=== PATIENT | female | born 1985 | race Caucasian/White ===

== ENCOUNTER → 2019-11-29 12:42 | Outpatient (BNVA) | payer MEDICAID, SELFPAY | PROVIDERS: Visit Provider Nurse Practitioner Women's Health | DX: Z34.81 Encounter for supervision of other normal pregnancy, first trimester (principal); Z87.898 Personal history of other specified conditions | CPT/HCPCS: 84315 ==

== ENCOUNTER → 2019-12-06 13:07 | Outpatient (BNVA) | payer MEDICAID, SELFPAY | PROVIDERS: Visit Provider Obstetrics & Gynecology | DX: Z34.81 Encounter for supervision of other normal pregnancy, first trimester | CPT/HCPCS: 80307; 84315; 85027; 86592; 86762; 86803; 86850; 86900; 87086; 87340 ==

== ENCOUNTER → 2019-12-21 10:53 | Outpatient (BNVA) | payer MEDICAID, SELFPAY | PROVIDERS: Visit Provider Obstetrics & Gynecology | DX: Z34.81 Encounter for supervision of other normal pregnancy, first trimester (principal) | CPT/HCPCS: 84315; 87491; 87591 ==

== ENCOUNTER → 2020-01-18 08:04 | Outpatient (BNVA) | payer MEDICAID, SELFPAY | PROVIDERS: Visit Provider Obstetrics & Gynecology | DX: Z01.89 Encounter for other specified special examinations (principal) | CPT/HCPCS: 84315 ==

== ENCOUNTER → 2020-02-12 09:05 | Outpatient (BNVA) | payer MEDICAID, SELFPAY | PROVIDERS: Visit Provider Obstetrics & Gynecology | DX: Z36.89 Encounter for other specified antenatal screening (principal); Z3A.20 20 weeks gestation of pregnancy | CPT/HCPCS: 76805 ==

== ENCOUNTER → 2020-02-20 12:48 | Outpatient (BNVA) | payer MEDICAID, SELFPAY | PROVIDERS: Visit Provider Obstetrics & Gynecology Female Pelvic Medicine and Reconstructive Surgery | DX: Z46.89 Encounter for fitting and adjustment of other specified devices (principal) | CPT/HCPCS: 84315 ==

== ENCOUNTER → 2020-03-10 15:08 | Outpatient (BNVA) | payer MEDICAID, SELFPAY | PROVIDERS: Visit Provider Obstetrics & Gynecology | DX: Z34.82 Encounter for supervision of other normal pregnancy, second trimester (principal) | CPT/HCPCS: 84315 ==

== ENCOUNTER → 2020-04-10 13:04 | Outpatient (BNVA) | payer MEDICAID, SELFPAY | PROVIDERS: Visit Provider Obstetrics & Gynecology | DX: Z34.82 Encounter for supervision of other normal pregnancy, second trimester (principal) | CPT/HCPCS: 82950; 84315; 85027 ==

== ENCOUNTER 2020-05-16 06:50 | Outpatient (CLI) | payer MEDICAID, SELFPAY ==
[2020-05-16] VITALS (8 sets, daily range): BP systolic 0–102; BP diastolic 0–62; PULSE 86–96; RESP 17; TEMP 36.9; BMI 27.9
--- NOTE | 2020-05-16 07:42 | US_ITS ---
WS: [id number] BIOPHYSICAL PROFILE HISTORY: decreased movement COMPARISON: 02/12/2020 Cardiac activity: 144 bpm. Cervix: closed. Placenta: Fundal, no previa or abruption. Placenta grade: 1 Parameters are as follows: Breathin Movement: 2 Tone: 2 Fluid volume: 2 Largest vertical pocket of amniotic fluid 5.4 cm. 1. Biophysical profile score: 8/8. 2. Normal amniotic fluid. US/US OB BPP wo NST 22791 IMPRESSION:
--- NOTE | 2020-05-16 09:42 | PC.NURSE ---
0849 This nurse entered room and could smell very strong odor of cigarette smoke. When the pt's s/o was asked if he had been smoking in the room, He stated that he had not, but instead he had taken out a partially spent cigarette and was sniffing it because he didn't have any chewing tobacco with him. This nurse re-educated on hospital policy regarding oxygen safety and the hazards of smoking inside the hospital. Education was given to prevent future concerns regarding leaving all smoking paraphernalia in their vehicle at future visits.
== END 2020-05-16 09:30 | disposition home or self-care (01) ==
LOC: OPOB 07:10 → OBGYN 09:23
PROVIDERS: Visit Provider Obstetrics & Gynecology
DX: O26.899 Other specified pregnancy related conditions, unspecified trimester (principal); Z3A.00 Weeks of gestation of pregnancy not specified; N89.8 Other specified noninflammatory disorders of vagina
CPT/HCPCS: 59025; 76819; 99211

== ENCOUNTER 2020-05-24 20:35 | Outpatient (CLI) | payer MEDICAID, SELFPAY ==
[2020-05-24] VITALS (9 sets, daily range): BP systolic 115–120; BP diastolic 68–74; PULSE 85–109; RESP 16; TEMP 36.7–37.1; O2SAT 96–100; BMI 28.6
[2020-05-24 22:16] LABS: Nitrazine Paper, PH Negative
[2020-05-24] MEDS: terbutaline 1 mg/mL INJ 0.25 MG SUBCUT (22:16)
== END 2020-05-24 23:20 | disposition home or self-care (01) ==
LOC: OPOB 20:41 → OBGYN 23:11
PROVIDERS: Visit Provider Obstetrics & Gynecology
DX: O26.899 Other specified pregnancy related conditions, unspecified trimester (principal); Z3A.00 Weeks of gestation of pregnancy not specified; R10.9 Unspecified abdominal pain
CPT/HCPCS: 59025; 83986; 96372; 99211; J3105

== ENCOUNTER → 2020-06-02 07:49 | Outpatient (BNVA) | payer MEDICAID, SELFPAY | PROVIDERS: Visit Provider Obstetrics & Gynecology | DX: Z34.83 Encounter for supervision of other normal pregnancy, third trimester (principal) | CPT/HCPCS: 84315; 87081 ==

== ENCOUNTER → 2020-06-09 08:55 | Outpatient (BNVA) | payer MEDICAID, SELFPAY | PROVIDERS: Visit Provider Obstetrics & Gynecology | DX: Z34.83 Encounter for supervision of other normal pregnancy, third trimester (principal) | CPT/HCPCS: 81000 ==

== ENCOUNTER 2020-06-11 06:17 | Observation (INO) | payer MEDICAID, SELFPAY ==
[2020-06-10 23:02] VITALS: BMI 28.8
[2020-06-10 23:09] VITALS: BP 116/72; PULSE 93
[2020-06-10 23:31] VITALS: BP 104/65; PULSE 98
[2020-06-11] VITALS (18 sets, daily range): BP systolic 0–116; BP diastolic 0–68; PULSE 81–105; RESP 18; TEMP 36.6–36.8
[2020-06-11 08:03] LABS: Basophils # 0.1 10^3/uL (0.0-0.1); Basophils % 0.4 %; Eosinophils # 0.1 10^3/uL (0.0-0.8); Eosinophils % 0.6 %; Hematocrit 34.4 % (37.0-47.0); Hemoglobin 11.4 g/dL (11.5-15.3); Lymphocytes # 1.7 10^3/uL (0.8-4.8); Lymphocytes % 13.3 %; Mean Corpuscular HGB Conc 33.1 g/dL (30.0-36.0); Mean Corpuscular Hemoglobin 29.7 pg (28.0-34.0); Mean Corpuscular Volume 89.6 fL (81-99); Mean Platelet Volume 9.4 fL (7.4-10.4); Monocytes % 8.1 %; Neutrophils # 9.31 10^3/uL (1.8-7.7); Neutrophils % 73.9 %; Nucleated Red Blood Cells % 0 %; Platelet Count 167 10^3/cmm (130-400); Red Blood Count 3.84 10^6/uL (4.1-5.3); Red Cell Distribution Width 14.3 % (12.1-15.1); White Blood Count 12.6 10^3/uL (4.0-10.0)
--- NOTE | 2020-06-11 17:28 | P.SS_ITS ---
Short Stay Summary Providers Date of Admit/Discharge: 06/10/20 Attending Provider: Goldy Hemphill MD Chief Complaint: Contractions and pressure HPI History of Present Illness Autumn Velazquez is a 34 year old female 6, para 4-0-1-4 with an LMP of 09/22/2019 and an EDC of 06/28/2020 based on LMP and consistent with a 20-week ultrasound, which placed her at 37-3/7 weeks gestation. Patient presented to labor and delivery at 22:55 on 06/10/2020 complaining of contractions, vaginal pressure, and having had a trickle of fluid at approximately 1900 that evening. Initial evaluation found her to be 50% effaced, 1 cm dilated, with a -3 station. Nitrazine was negative. She was subha every 4 to 7 minutes. She was watched over the next 4 hours and did not make any cervical change. However, she continued to report discomfort with the contractions. Since she lived over an hour away from the hospital and this would be her fifth delivery, decision was made to continue to monitor until morning. At approximately 06:00 she was reported to have progressed to 2 cm dilation and 70% effacement. As a result she was continued to be monitored through the day. By about 8:00 in the morning she was noted to be 3 cm dilated. She would intermittently contract regularly but did not make any further cervical change through the day. She currently reports that her contractions are mild. They do get stronger if he is up walking around, but decreased with rest again. She denied any vaginal bleeding. She denied leaking of fluid. She reported baby was moving well. She reported still having the pelvic pressure and low back discomfort. Review of Systems Const: Denies: fever(s) or chills ENMT: Denies: throat pain or nasal congestion Card: Denies: chest pain, palpitations or lightheadedness Resp: Denies: dyspnea, productive cough, non-productive cough or wheezing GI: Denies: abdominal pain, nausea or vomiting : Denies: dysuria, vaginal bleeding or vaginal discharge Musc: Reports: back pain Neuro: Denies: headache(s) or dizziness Psych: Denies: anxiety or depression Endo: Denies: cold intolerance or hot flashes Lew/Lymph: Denies: easy bruising or easy bleeding Home Meds/Allergies Home Medications and Allergies Home Medications Medication Instructions Recorded Confirmed Type ferrous sulfate 325 mg (65 mg 325 mg PO DAILY 05/05/20 06/10/20 History iron) tablet,delayed release vit [id number] 1 pkg PO DAILY 06/10/20 06/10/20 History [ + DHA] Allergies Allergy/AdvReac Type Severity Reaction Status Date / Time acetaminophen Allergy high fever Verified 06/10/20 23:03 [From Excedrin Migraine] aspirin Allergy high fever Verified 06/10/20 23:03 [From Excedrin Migraine] caffeine Allergy high fever Verified 06/10/20 23:03 [From Excedrin Migraine] PFSH Acute PFSH: Medical History History of seizure Febrile seizures as a child. Years since last seizure. States has never needed medication. Surgical History No pertinent past surgical history Family History Sister Cancer Uterine cancer;dx'd at 32 y/o Father Hypertension Denies family history of Diabetes CAD (coronary artery disease) Stroke Social History Smoking and tobacco status: never smoked Second hand smoke exposure: Yes Alcohol intake: never Other details last substance use: Denies drug use. Female Reproductive History: : 6 Vitals/I&O/Wt Last Vital Signs Temp 98.2 F 06/11/20 16:19 Pulse 87 06/11/20 17:22 Resp 18 06/11/20 17:22 BP 113/68 06/11/20 17:22 Weight last 48 hrs Weight 173 lb Weight 173 lb Physical Exam Const: COMMON NORMALS: no acute distress, average body habitus, alert and well nourished GENERAL APPEARANCE: well developed ORIENTATION/CONSCIOUSNESS: Yes oriented to person, Yes oriented to place and Yes oriented to time Resp: COMMON NORMALS: normal respiratory effort and clear to auscultation bilaterally AUSCULTATION: clear to auscultation bilaterally Cardio: COMMON NORMALS: regular rate, regular rhythm, No gallops present (Cardio), No murmurs present (Cardio) and No rub (Cardio) RATE: regular rate RHYTHM: regular rhythm GI: COMMON NORMALS: Soft to palpation, non-tender, No hepatosplenomegaly present and no masses (Except for gravid uterus) INSPECTION: Yes gravid abdomen AUSCULTATION: Yes normoactive bowel sounds PALPATION: Yes Soft to palpation, Yes No hepatosplenomegaly present and No Hernia present : EXTERNAL FEMALE EXAM: No Hernia present OTHER: Per nurse at 16:00 - Cervix, 60% effaced, 3 cm dilated and -3 station Neuro: SENSORIUM/ORIENTATION: Yes alert, Yes oriented to person, Yes oriented to place and Yes oriented to time Psych: COMMON NORMALS: normal affect MOOD & AFFECT: Yes euthymic mood Hospital Course Hospital Course: At this point patient has been monitored for approximately 19 hours. She has not made any further cervical chemical cell changer the last 8 hours. Contractions are very mild at this time and vary between 6 to 9 minutes apart. monitoring has been reassuring throughout this timeframe. I discussed with the patient and her partner that at this point I would not augment or induce labor since she is only 37 weeks gestation. She does not have any indications for inducing labor at this time. I discussed with them that we do not stop labor at this point however. I discussed with them that at this point she appears to be in what is called false labor which can act and feel the same as true labor, but does not lead to a progressive change in the cervix. I discussed with him that this can go on for several hours today's and then go completely away. I discussed with him that I cannot predict when she will progress into true labor. Questions were answered. Patient is being discharged to home in the evening of 06/11 with instructions to come back to the hospital if contractions become significantly stronger. She was instructed to keep her scheduled appointment in the office on Tuesday. SSS Data Addt'l Data from Hospital Stay: Monitoring: Baseline heart rate 125-130 with moderate variability and accelerations present. No decelerations noted. Category 1 tracing contractions are sporadic and varied from 6 to 9 minutes apart. Diagnoses at Discharge Discharge Diagnosis (1) False labor at or after 37 completed weeks of gestation: Status: Acute Discharge Plan Discharge Patient Disposition: Home, Self-Care Condition: Stable Prescriptions: Continued ferrous sulfate 325 mg (65 mg iron) tablet,delayed release (DR/EC) 325 mg PO DAILY RF: 0 + DHA 28 mg iron- 975 mcg-200 mg Combo Pack 1 pkg PO DAILY RF: 0 Discharge Orders: Discharge Order (Routine); Ordered 06/11/20 Ordered By: Goldy Hemphill Referrals: Goldy Hemphill MD [Physician] - 06/16/20 3:30 pm (Keep scheduled appointment on 06/16) Discharge Diet: Regular Discharge Activity: Resume usual activity Patient Instructions: OB Undelivered Discharge Activity Restrictions/Additional Instructions: Keep scheduled follow up visit. Attestations Medical Necessity Statement*: Patient was having regular contractions initially and had made initial cervical change during the night. Time Spent in Patient Care*: less than 30 min Quality Metrics Clinical Quality Measures: During this hospital stay, did patient experience: None Coding Level of Care Code Acute Cabin Service Agent for Chg Fwd Exam Detailed Diagnoses False labor at or after 37 completed weeks of gestation O47.1
== END 2020-06-11 17:58 | disposition home or self-care (01) ==
LOC: OBGYN 17:21
PROVIDERS: Admitting Provider Obstetrics & Gynecology; Visit Provider Obstetrics & Gynecology
DX: O47.1 False labor at or after 37 completed weeks of gestation (principal); Z3A.37 37 weeks gestation of pregnancy
CPT/HCPCS: 12345; 59025; 83986; 85025; 99211; G0378

== ENCOUNTER 2020-06-25 02:15 | Inpatient (IN) | payer MEDICAID, SELFPAY ==
[2020-06-25] VITALS (48 sets, daily range): BP systolic 0–132; BP diastolic 0–77; PULSE 74–109; RESP 16–18; TEMP 36.5–36.9; O2SAT 97–100; BMI 28.9
[2020-06-25 02:55] LABS: Basophils % 0.3 %; Eosinophils # 0.1 10^3/uL (0.0-0.8); Eosinophils % 0.8 %; Hemoglobin 12.6 g/dL (11.5-15.3); Lymphocytes # 1.5 10^3/uL (0.8-4.8); Lymphocytes % 13.1 %; Mean Corpuscular HGB Conc 33.2 g/dL (30.0-36.0); Mean Corpuscular Hemoglobin 29.9 pg (28.0-34.0); Mean Corpuscular Volume 90.3 fL (81-99); Mean Platelet Volume 9.3 fL (7.4-10.4); Neutrophils # 8.49 10^3/uL (1.8-7.7); Neutrophils % 73.3 %; Nucleated Red Blood Cells % 0 %; Platelet Count 194 10^3/cmm (130-400); Red Blood Count 4.21 10^6/uL (4.1-5.3); Red Cell Distribution Width 14.3 % (12.1-15.1); White Blood Count 11.6 10^3/uL (4.0-10.0)
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
[2020-06-25] MEDS: oxytocin 30 UNIT/500 ML BAG 600 UNIT IV (07:14)
--- NOTE | 2020-06-25 07:41 | P.PCNOB_ITS ---
Delivery Note: Date of delivery: June 25, 2020 Pre-delivery diagnoses: at 39-4/7 weeks gestation in labor Post-delivery diagnoses: 1. Term vaginal delivery at 39-4/7 weeks gestation 2. Viable male infant. Procedure: Spontaneous vaginal delivery Op report anesthesia: None Delivering Physician: Dr. Goldy Hemphill Estimated blood loss (mL): 250 Pre-Delivery Course: Patient is a 35-year-old white female 6, para 4-0-1-4 with an LMP of 09/22/2019 and an EDC of 06/28/2020 based on LMP and consistent with a 20-week ultrasound, which places her at 39-4/7 weeks gestation. She presented to labor and delivery at 23:55 on 06/24/2020 with complaint of contractions. She was subha every 1 to 4 minutes. Cervix was 50% effaced and 3 to 4 cm dilated. She was noted to be making cervical change and was admitted. Patient was having runs of back to back contractions at times. With 1 of these at about 02:30 baby had a 8-minute deceleration. It responded to position changes, fluid bolus, and oxygen. She had no more the prolonged decelerations but would continue to have episodes of couplets up to quadruplets of contractions. She had artificial rupture of membranes with clear fluid at approximately 03:00. She continued to progress through the night and was noted to be completely dilated at 07:02 Delivery: Patient started pushing at 07:02 and delivered at 07:09 as a spontaneous vaginal delivery of an occiput anterior male infant over an intact perineum under no anesthesia. Following delivery of the infant's head the right hand was delivering adjacent to the left cheek. The arm was swept out and this was the anterior arm. The rest of the baby delivered atraumatically. Baby was placed on the mother's abdomen where it was left in the care of the waiting nurses. It was spontaneously crying. Cord was clamped. It was cut by the reported father of the baby. Cord blood was obtained. Pitocin bolus was started. Placenta delivered intact by simple expression at 07:14. The cervix and vagina were palpated and noted to be intact. The labia were inspected and noted to be intact except for superficial abrasions. No repair needed. FINDINGS 1. Viable male weighing 9 lbs 7 oz (4280 g) with a length of 21 inches and Apgars of 8 at 1 minute and 9 at 5 minutes. 2. Three-vessel cord with no loops of nuchal cord noted. 3. Normal-appearing placenta with a central cord insertion. Post-Delivery Status: Mother and infant were left to recover in satisfactory condition. A&P Assessment and plan (1) Term delivered: Status: Acute Coding Level of Care Code Acute Optical Laboratory Mechanic for Chg Fwd Diagnoses Term delivered O80
[2020-06-25] MEDS: prenatal vitamin Capsule 1 CAP PO (11:13)
[2020-06-25] MEDS: docusate sodium 100 mg Capsule PO ×2 (11:14→18:55)
[2020-06-25] MEDS: dextrose 5%-lactated ringers 1,000 ML 125 ML IV (13:56)
[2020-06-25 20:16] LABS: Hematocrit 32.8 % (37.0-47.0); Hemoglobin 10.8 g/dL (11.5-15.3); Mean Corpuscular HGB Conc 32.9 g/dL (30.0-36.0); Mean Corpuscular Hemoglobin 29.3 pg (28.0-34.0); Mean Corpuscular Volume 88.9 fL (81-99); Mean Platelet Volume 9.6 fL (7.4-10.4); Platelet Count 184 10^3/cmm (130-400); Red Blood Count 3.69 10^6/uL (4.1-5.3); White Blood Count 13.6 10^3/uL (4.0-10.0)
[2020-06-26 01:30] VITALS: BP 105/63; PULSE 83; RESP 16
[2020-06-26 06:00] VITALS: BP 100/67; PULSE 89; RESP 16; TEMP 36.8
--- NOTE | 2020-06-26 08:39 | P.DS_ITS ---
Discharge Providers CARE DIRECTOR RN Date of Admission: 06/25/20 02:15 Date of Discharge: 06/26/20 Attending Provider at Admission: Goldy Hemphill MD Attending Provider at Discharge: Goldy Hemphill MD Diagnoses at Discharge Discharge Diagnosis (1) Term delivered: Status: Acute Reason for Visit Reason for Visit: CONTRACTIONS Hospital Course Discharge Summary: Patient is a 35-year-old white female 6, para 4-0-1-4 with an LMP of 09/22/2019 and an EDC of 06/28/2020 based on LMP and consistent with a 20-week ultrasound, which places her at 39-3/7 weeks gestation at the time of admission. She presented to L&D on 06/24/2020 at 23:55 with complaints of contractions. She was 50% effaced and 3 to 4 cm dilated and was subha every 1 to 4 minutes. She was having runs of contractions with most as couplets or triplets. She had a few longer winds which the baby did not tolerate very well. In between these runs, however, baby was reassuring. She made cervical change through the rest of the night and was found to be completely dilated at 07:02. She started pushing at 07:02 and delivered at 07:09 as a spontaneous vaginal delivery of an occiput anterior male over an intact perineum under no anesthesia. The baby weighed 9 lbs 7 oz (4280 g) with a length of 21 inches and Apgars of 8 at 1 minute and 9 at 5 minutes. Patient had superficial labial abrasions which required no repair. Mother and infant both did well following delivery. Postoperative Day 1 Patient was without complaints. She reported tolerating a regular diet without nausea or vomiting. She denied any lightheadedness or dizziness with ambulation. She denied shortness of breath or chest pains. She reported her pain was well controlled. She denied problems with urination. She stated that her bleeding had slowed. She was requesting to go home. Physical Exam: See below Plan Discharged home. Discharge instructions discussed with patient. Patient to follow-up in the office in approximately 6 weeks for exam. She had been instructed to continue vitamins and iron at home. She was planning to use [id number] ibuprofen for pain as needed. Information Peripartum Data: Delivery Method: Vaginal Physical Exam Const: COMMON NORMALS: no acute distress, average body habitus, alert and well nourished GENERAL APPEARANCE: well developed ORIENTATION/CONSCIOUSNESS: Yes oriented to person, Yes oriented to place and Yes oriented to time GI: COMMON NORMALS: Soft to palpation, non-tender, No hepatosplenomegaly present and no masses (except for non-tender uterus, 2 fingerbreaths below umbilicus) AUSCULTATION: Yes normoactive bowel sounds PALPATION: Yes Soft to palpation, Yes No hepatosplenomegaly present and No Hernia present : EXTERNAL FEMALE EXAM: No Hernia present Extremity: COMMON NORMALS: no calf tenderness NARRATIVE EXTREMITY EXAM: Trace lower extremity edema bilaterally Neuro: SENSORIUM/ORIENTATION: Yes alert, Yes oriented to person, Yes oriented to place and Yes oriented to time Psych: COMMON NORMALS: normal affect MOOD & AFFECT: Yes euthymic mood Discharge Data Data Completed and Pending: Labs from last 24 hours 06/25/20 19:43 WBC 13.6 H RBC 3.69 L Hgb 10.8 L Hct 32.8 L MCV 88.9 MCH 29.3 MCHC 32.9 RDW 14.0 Plt Count 184 MPV 9.6 Vitals: Last Vital Signs Temp 98.3 F 06/26/20 06:00 Pulse 89 06/26/20 06:00 Resp 16 06/26/20 06:00 BP 100/67 06/26/20 06:00 Pulse Ox 97 06/25/20 20:30 Discharge Plan Discharge Patient Disposition: Home Condition: Stable Prescriptions: Continued ferrous sulfate 325 mg (65 mg iron) tablet,delayed release (DR/EC) 325 mg PO DAILY RF: 0 + DHA 28 mg iron- 975 mcg-200 mg Combo Pack 1 pkg PO DAILY RF: 0 Discharge Orders: Discharge Order (Routine); Ordered 06/26/20 Ordered By: Godly Hemphill Referrals: Goldy Hemphill MD [Physician] - 08/11/20 2:45 pm (* Your 6 week post appointment is on 08/11/2020 at 2:45am. ) Discharge Diet: Regular Discharge Activity: Limit activity as instructed Patient Instructions: Your Baby (GEN), and Nipple Soreness (GEN), How to Increase Your Milk Supply (DC), How to Tell if Your Baby is Getting Enough Breast Milk (GEN), and Your Diet (GEN), Breast Care for the Breast Feeding Mother (GEN), OB Discharge Report, OB Food/Drug Interaction Guide, OB Vaginal Deliveries, OB Vaginal Deliveries - [facility] Activity Restrictions/Additional Instructions: May use [id number]-[id number] ibuprofen 200 mg, 3 tablets four times a day or 4 tablets three times a day, as needed for pain Discharge Date/Time: 06/26/20 14:52 Discharge Attestations CARE DIRECTOR RN Time Spent in Discharge Care*: less than 30 min Coding Level of Care Code Acute Maintenance Painter Apprentice for Chg Fwd Exam Expanded Problem Focused Diagnoses Term delivered O80
[2020-06-26] MEDS: prenatal vitamin Capsule 1 CAP PO (09:34)
[2020-06-26] MEDS: docusate sodium 100 mg Capsule PO (09:35)
[2020-06-26 09:36] VITALS: BP 99/65; PULSE 92; RESP 18; TEMP 36.8
[2020-06-26 14:48] VITALS: BP 103/70; PULSE 81; RESP 18; TEMP 36.8
== END 2020-06-26 14:52 | disposition home or self-care (01) | DRG 807 ==
LOC: OBGYN 07:29 → OPOB 07:29
PROVIDERS: Admitting Provider Obstetrics & Gynecology; Visit Provider Obstetrics & Gynecology
DX: O76 Abnormality in fetal heart rate and rhythm complicating labor and delivery (principal); Z37.0 Single live birth; Z3A.39 39 weeks gestation of pregnancy
CPT/HCPCS: 12345; 36415; 59025; 59409; 83986; 85025; 85027; 98960; 99211

== ENCOUNTER → 2020-09-11 10:10 | Outpatient (BNVA) | payer MEDICAID, SELFPAY | PROVIDERS: Visit Provider Obstetrics & Gynecology | DX: Z30.011 Encounter for initial prescription of contraceptive pills (principal) | CPT/HCPCS: 81025 ==

== ENCOUNTER → 2021-02-13 12:12 | Outpatient (BNVA) | payer MEDICAID, SELFPAY | PROVIDERS: Visit Provider Obstetrics & Gynecology | DX: Z30.011 Encounter for initial prescription of contraceptive pills (principal) | CPT/HCPCS: 81025 ==

== ENCOUNTER → 2022-09-21 13:08 | Outpatient (BNVA) | payer MEDICAID, SELFPAY | PROVIDERS: Visit Provider Student in an Organized Health Care Education/Training Program | DX: S82.891A Other fracture of right lower leg, initial encounter for closed fracture (principal); X50.1XXA Overexertion from prolonged static or awkward postures, initial encounter | CPT/HCPCS: 73610 ==

== ENCOUNTER → 2022-10-05 08:05 | Outpatient (BNVA) | payer MEDICAID, SELFPAY | PROVIDERS: Visit Provider Student in an Organized Health Care Education/Training Program | DX: S82.891D Other fracture of right lower leg, subsequent encounter for closed fracture with routine healing (principal); X58.XXXD Exposure to other specified factors, subsequent encounter | CPT/HCPCS: 73610 ==

== ENCOUNTER → 2022-10-18 11:41 | Outpatient (BNVA) | payer MEDICAID, SELFPAY | PROVIDERS: Visit Provider Student in an Organized Health Care Education/Training Program | DX: S82.891A Other fracture of right lower leg, initial encounter for closed fracture (principal); X58.XXXA Exposure to other specified factors, initial encounter | CPT/HCPCS: 73610 ==

== ENCOUNTER 2022-10-18 14:30 | Outpatient (CLI) | payer MEDICAID, SELFPAY | END 2022-10-18 14:31 | disposition home or self-care (01) | LOC: SPT 14:30 | PROVIDERS: Visit Provider Student in an Organized Health Care Education/Training Program | DX: Z46.89 Encounter for fitting and adjustment of other specified devices (principal); S82.891D Other fracture of right lower leg, subsequent encounter for closed fracture with routine healing; X58.XXXD Exposure to other specified factors, subsequent encounter | CPT/HCPCS: 97760; L1902 ==

== ENCOUNTER → 2022-10-29 09:19 | Outpatient (BNVA) | payer MEDICAID, SELFPAY | PROVIDERS: Visit Provider Nurse Practitioner Family | DX: R53.83 Other fatigue (principal); R63.5 Abnormal weight gain; Z30.011 Encounter for initial prescription of contraceptive pills | CPT/HCPCS: 80053; 84439; 84443; 84481; 85025 ==

== ENCOUNTER → 2022-11-08 13:48 | Outpatient (BNVA) | payer MEDICAID, SELFPAY | PROVIDERS: Visit Provider Nurse Practitioner Family | DX: Z12.4 Encounter for screening for malignant neoplasm of cervix (principal) | CPT/HCPCS: 88175 ==

== ENCOUNTER → 2023-02-03 13:13 | Outpatient (BNVA) | payer MEDICAID, SELFPAY | PROVIDERS: PCP Nurse Practitioner Family; Visit Provider Obstetrics & Gynecology | DX: R87.620 Atypical squamous cells of undetermined significance on cytologic smear of vagina (ASC-US) (principal); R87.811 Vaginal high risk human papillomavirus (HPV) DNA test positive | CPT/HCPCS: 81025; 88305 ==

== ENCOUNTER → 2023-10-11 10:08 | Outpatient (BNVA) | payer BC, SELFPAY | PROVIDERS: PCP Nurse Practitioner Family; Visit Provider Nurse Practitioner Women's Health | DX: Z32.00 Encounter for pregnancy test, result unknown (principal) | CPT/HCPCS: 81025 ==

== ENCOUNTER → 2023-11-04 08:36 | Outpatient (BNVA) | payer BC, SELFPAY | PROVIDERS: PCP Nurse Practitioner Family; Visit Provider Nurse Practitioner Women's Health | DX: Z34.91 Encounter for supervision of normal pregnancy, unspecified, first trimester (principal); Z3A.09 9 weeks gestation of pregnancy | CPT/HCPCS: 76801 ==

== ENCOUNTER → 2023-11-10 15:40 | Outpatient (BNVA) | payer BC, MEDICAID, SELFPAY | PROVIDERS: PCP Nurse Practitioner Family; Visit Provider Obstetrics & Gynecology | DX: O09.529 Supervision of elderly multigravida, unspecified trimester (principal); R87.618 Other abnormal cytological findings on specimens from cervix uteri; Z3A.00 Weeks of gestation of pregnancy not specified | CPT/HCPCS: 80307; 81000; 85025; 86592; 86762; 86803; 86850; 86900; 87086; 87340; 87491; 87591; 87806; 88175 ==

== ENCOUNTER → 2023-12-09 13:35 | Outpatient (BNVA) | payer BC, MEDICAID, SELFPAY | PROVIDERS: PCP Nurse Practitioner Family; Visit Provider Obstetrics & Gynecology | DX: O09.521 Supervision of elderly multigravida, first trimester (principal); Z34.90 Encounter for supervision of normal pregnancy, unspecified, unspecified trimester | CPT/HCPCS: 81000 ==

== ENCOUNTER → 2024-01-16 14:15 | Outpatient (BNVA) | payer BC, MEDICAID, SELFPAY | PROVIDERS: PCP Nurse Practitioner Family; Visit Provider Obstetrics & Gynecology | DX: Z34.92 Encounter for supervision of normal pregnancy, unspecified, second trimester (principal); Z3A.19 19 weeks gestation of pregnancy | CPT/HCPCS: 76805 ==

== ENCOUNTER → 2024-01-20 07:58 | Outpatient (BNVA) | payer BC, MEDICAID, SELFPAY | PROVIDERS: PCP Nurse Practitioner Family; Visit Provider Obstetrics & Gynecology | DX: O09.521 Supervision of elderly multigravida, first trimester (principal); Z3A.00 Weeks of gestation of pregnancy not specified | CPT/HCPCS: 80307; 84315 ==

== ENCOUNTER → 2024-02-14 08:19 | Outpatient (BNVA) | payer BC, MEDICAID, SELFPAY | PROVIDERS: PCP Nurse Practitioner Family; Visit Provider Nurse Practitioner Women's Health | DX: O09.521 Supervision of elderly multigravida, first trimester (principal); Z3A.00 Weeks of gestation of pregnancy not specified | CPT/HCPCS: 82950; 84315; 87086 ==

== ENCOUNTER → 2024-03-26 08:41 | Outpatient (BNVA) | payer BC, MEDICAID, SELFPAY | PROVIDERS: PCP Nurse Practitioner Family; Visit Provider Obstetrics & Gynecology | DX: O09.521 Supervision of elderly multigravida, first trimester (principal); Z3A.00 Weeks of gestation of pregnancy not specified | CPT/HCPCS: 84315; 85025 ==

== ENCOUNTER 2024-05-08 19:18 | Outpatient (CLI) | payer BC, MEDICAID, SELFPAY ==
[2024-05-08] VITALS (9 sets, daily range): BP systolic 103–122; BP diastolic 56–71; PULSE 96–106; RESP 16; TEMP 36.8–36.9; BMI 31.8
[2024-05-08] MEDS: NIFEdipine 10 mg Capsule 30 MG PO (20:47)
== END 2024-05-08 21:58 | disposition home or self-care (01) ==
LOC: OPOB 19:19 → OBGYN 19:28
PROVIDERS: PCP Nurse Practitioner Family; Visit Provider Obstetrics & Gynecology
DX: O26.899 Other specified pregnancy related conditions, unspecified trimester (principal); Z3A.00 Weeks of gestation of pregnancy not specified; R10.9 Unspecified abdominal pain
CPT/HCPCS: 59025; 99211

== ENCOUNTER 2024-05-13 19:26 | Outpatient (CLI) | payer BC, MEDICAID, SELFPAY ==
[2024-05-13] VITALS (8 sets, daily range): BP systolic 109–120; BP diastolic 62–72; PULSE 98–121; O2SAT 96; BMI 31.6
--- NOTE | 2024-05-13 20:07 | USR_ITS ---
PROCEDURE INFORMATION: Exam: US Biophysical Profile Without Non-Stress Test Exam date and time: 05/13/2024 8:48 PM Age: 38 years old Clinical indication: Other: Patient wasn't feeling baby move as much; ; Additional info: Decreased movement TECHNIQUE: Imaging protocol: US biophysical profile without non-stress testing. COMPARISON: US OB >= 14 weeks fetus 13212 01/16/2024 2:22 PM FINDINGS: heart rate: 165 bpm Amniotic fluid index: CLARE is 13.95 cm. BIOPHYSICAL PROFILE: breathing (BPP): 2 out of 2. gross body movement (BPP): 2 out of 2. tone (BPP): 2 out of 2. Amniotic fluid (BPP): 2 out of 2. MATERNAL ANATOMY: Cervix: Cervical length measures 3.6 cm. US/US OB BPP wo NST [id number] IMPRESSION: 1. Normal biophysical profile 06/28. 2. Vertex presentation. 3. 3.6 cm closed cervix. 4. Anterior placenta. 5. heart beat 165 bpm. 6. Normal 14.0 cm amniotic fluid index.
== END 2024-05-13 21:16 | disposition home or self-care (01) ==
LOC: OPOB 19:27 → OBGYN 19:27
PROVIDERS: Visit Provider Obstetrics & Gynecology
DX: O36.8190 Decreased fetal movements, unspecified trimester, not applicable or unspecified (principal); Z3A.00 Weeks of gestation of pregnancy not specified
CPT/HCPCS: 59025; 76819; 99211

== ENCOUNTER → 2024-05-17 08:14 | Outpatient (BNVA) | payer BC, MEDICAID, SELFPAY | PROVIDERS: Visit Provider Obstetrics & Gynecology | DX: O09.521 Supervision of elderly multigravida, first trimester (principal); Z3A.00 Weeks of gestation of pregnancy not specified | CPT/HCPCS: 84315; 87081 ==

== ENCOUNTER 2024-05-26 13:23 | Inpatient (IN) | payer BC, MEDICAID, SELFPAY ==
[2024-05-26] VITALS (66 sets, daily range): BP systolic 98–146; BP diastolic 50–80; PULSE 76–110; RESP 18; TEMP 36.9; O2SAT 98–100; BMI 31.9
[2024-05-26] MEDS: oxytocin 30 UNIT/500 ML BAG IV (14:00)
[2024-05-26] MEDS: dextrose 5%-lactated ringers 1,000 ML 125 ML IV (14:00)
[2024-05-26 15:05] LABS: Basophils % 0.3 %; Eosinophils # 0.1 10^3/uL (0.0-0.8); Eosinophils % 0.8 %; Hematocrit 37.4 % (36-47); Lymphocytes # 1.3 10^3/uL (0.8-4.8); Lymphocytes % 12.9 %; Mean Corpuscular HGB Conc 34.5 g/dL (30-55); Mean Corpuscular Hemoglobin 30.1 pg (27-33); Mean Corpuscular Volume 87.4 fl (85-98); Mean Platelet Volume 9.6 fL (7.4-10.4); Monocytes # 0.8 10^3/uL (0.2-0.9); Monocytes % 7.7 %; Neutrophils # 7.44 10^3/uL (1.8-7.7); Neutrophils % 76.1 %; Nucleated Red Blood Cells % 0 %; Platelet Count 189 10^3/cmm (157-399); Red Blood Count 4.28 10^6/uL (3.85-5.65); Red Cell Distribution Width 14.3 % (12.1-15.1); White Blood Count 9.78 10^3/uL (3.29-11.43)
--- NOTE | 2024-05-26 15:05 | P.HP_ITS ---
Providers/Chief Complaint 2 Admitting Physician: Taye Newman MD Primary COPPER MINER BLASTING: Suman Parekh MD Chief Complaint: INDUCTION OF LABOR HPI COPPER MINER BLASTING History of Present Illness 38 y.o. A1 EDC June 02, 2024 At 39 w 0 d No complications Admitted for elective induction of labor No c/o + active movements h/o x five Present Details : 7 Para: 5 Labs Rubella: Immune RPR: Negative GBS: Negative Medications/Allergies Home Medications Medication Instructions Recorded Confirmed Last Taken Type 103-folic acid 400 tab PO 10/27/23 05/21/24 05/25/24 21:00 History mcg-omeg3 32.5 mg-dha-fish oil chew tablet Allergies Allergy/AdvReac Type Severity Reaction Status Date / Time aspirin Allergy high fever Verified 05/21/24 12:52 [From Excedrin Migraine] caffeine Allergy high fever Verified 05/21/24 12:52 [From Excedrin Migraine] PFSH COPPER MINER BLASTING 2 PFSH: Medical History No pertinent past medical history neghx: htn,dm,thyroid,dvt/pe PCP: None History of seizure Febrile seizures as a child. Years since last seizure. States has never needed medication. Surgical History No pertinent past surgical history Family History Sister Ovarian cancer dx'd at 32 y/o Father Hypertension Mother Heart disease Denies family history of Diabetes Hyperlipidemia Breast cancer Uterine cancer Thyroid disease Stroke Social History Smoking and tobacco/nicotine status: former use of tobacco/nicotine Other Female Reproductive History: Hx Age of Menarche: 15 History History History 2 7 Term 5 0 Miscarriages/Ectopic 1 Living Children 5 Care PURA Calculator 2 Estimated Delivery Date Method Current WG Current Estimate 06/02/24 LMP (Certain) 39w 1d Specific Issues/Plans * AMA * persistent hematuria Vitals/I&O/Wt Last Vital Signs Temp 98.2 F 05/27/24 15:00 Pulse 92 07/07/24 15:00 Resp 16 05/27/24 15:00 BP 109/74 05/27/24 15:00 Pulse Ox 97 05/27/24 15:00 O2 Del Method Room Air 05/27/24 15:00 05/27/24 05/27/24 05/27/24 06:59 14:59 22:59 Intake Total 151.4 / 2485.067 Output Total 600 / 600 Balance -448.6 / 1885.067 Weight last 48 hrs Weight 192 lb Weight 192 lb Physical Exam 2 Narrative: Weight 189 lbs VS normal General comfortable, awake, alert Lungs: clear Cor: RRR Abd: nontender Cervix: 1-2 cm / 50% / -3 / posterior Ext: normal External monitor: heart tracing good variability, + accelerations Urinary Catheter Management: Simental: Cath Placed During This Visit: yes, but has since been removed by the nurse Reason for Continuing Indwelling Catheter: Decision to DC Catheter Urinary Catheter Date of Insertion: 05/26/24 Urinary Catheter Time of Insertion: 21:40 Date Urinary Catheter Removed: 05/26/24 Time Urinary Catheter Discontinued: 23:30 Data 05/27/24 12:17 Results Labs OB ([facility]): 2 Obstetrics US/Biophysical Profile Blood Type O Positive 05/26/24 Antibody Screen Negative 05/26/24 Hct 34.6 % (36-47) L 05/27/24 Hgb 11.80 g/dL (11.27-16.99) 05/27/24 Rho(D) Type Rh positive 05/26/24 Plt Count 146 10^3/cmm (157-399) L 05/27/24 Hep Bs Antigen Non-reactive (Nonreactive) 11/10/23 Hepatitis C Antibody Non-reactive (Nonreactive) 11/10/23 Rubella IgG Antibody > 500.0 IU/mL (0.0-10.0) H 11/10/23 RPR Nonreactive (Nonreactive) 11/10/23 HIV 1&2 Ab & HIV 1 Ag Non-reactive (Non-Reactiv) 11/10/23 TSH 1.26 uIU/mL (0.27-4.20) 10/29/22 Free T4 1.11 ng/dL (0.82-1.77) 10/29/22 C.trachomatis RNA (TMA) Not detected (NOT DETECTED) N.gonorrhoeae RNA (TMA) Not detected (NOT DETECTED) T. vaginalis Amp RNA Not detected (NOT DETECTED) 11/10/23 Chlamydia/GC Comment See note 11/10/23 Cystic Fibrosis Screen Negative 12/29/23 Glucose 1 Hr 50 gm 96 mg/dL (85-140) 02/14/24 HCG, Qual Positive (Negative) H 10/11/23 Urine Opiates Screen Negative ng/mL (Negative) 01/20/24 Ur Barbiturates Screen Negative ng/mL (Negative) 01/20/24 Ur Phencyclidine Scrn Negative ng/mL (Negative) 01/20/24 Ur Amphetamines Screen Negative ng/mL (Negative) 01/20/24 U Benzodiazepines Scrn Negative ng/mL (Negative) 01/20/24 Urine Cocaine Screen Negative ng/mL (Negative) 01/20/24 U Marijuana (THC) Screen Negative ng/mL (Negative) 01/20/24 Micro Urine Specimen 02/14/24 Pap Smear Interpret See note A 11/10/23 A&P Assessment and plan (1) Encounter for induction of labor: 39 w 0 d Fetus reassuring Admit for elective induction of labor Plan start Pitocin per protocol Attestations 2 Medical Necessity Statement*: patient at 39 w 0 d, admitted for elective induction of labor Coding Level of Care Code Acute Code for Chg Fwd Diagnoses Encounter for induction of labor Z34.90 Time Spent (min) 30
[2024-05-26] MEDS: lactated ringers 1,000 ML 999 ML IV ×2 (19:38→20:40)
--- NOTE | 2024-05-26 20:20 | P.ANESASSM_ITS ---
Pre-Anesthetic Assessment Height/Weight: Height 1.65 m Weight 87.09 kg Temp Pulse Resp BP O2 Del Method 98.4 F 82 18 119/68 Room Air 05/26/24 17:00 05/26/24 19:46 05/26/24 17:00 05/26/24 19:46 05/26/24 13:00 Epidural Was Beta Jennifer taken within 24 hours: N/A Was Clonidine taken within 24 hours: N/A Last intake: Solids 1200 Social No alcohol and No tobacco Exam alert, oriented x 3, clear to auscultation bilaterally and regular rate & rhythm Airway Submandibular: within normal limits Cervical ROM: within normal limits Mallampati: Class II Dentition: chipped (Bottom right) History/ROS No significant history except as noted and No significant complaints Pulmonary None reported CV/HEM None reported None reported Hepatic None reported GI Gastroesophageal Reflux Disease Metabolic None reported Musc/skel Lower Back Pain Neuropsych Seizure (In 20s, no intervention, no problems since) Anesthetic Plan ASA status: 2 Anesthesia: Anesthesia Evaluation and Regional (specify below) (Epidural) Risk of > 500 ml blood loss (7ml/kg in children): Yes, adequate IV access and fluids planned Medications/Allergies Home Medications Medication Instructions Recorded Confirmed Last Taken Type 103-folic acid 400 tab PO 10/27/23 05/21/24 05/25/24 21:00 History mcg-omeg3 32.5 mg-dha-fish oil chew tablet Allergies Allergy/AdvReac Type Severity Reaction Status Date / Time acetaminophen Allergy high fever Verified 05/21/24 12:52 [From Excedrin Migraine] aspirin Allergy high fever Verified 05/21/24 12:52 [From Excedrin Migraine] caffeine Allergy high fever Verified 05/21/24 12:52 [From Excedrin Migraine] Current Medications Generic Name Dose Route Start Last Admin Trade Name Freq PRN Reason Stop Dose Admin Dextrose/Lactated Ringer's 1,000 mls @ 125 mls/hr 05/26/24 13:30 05/26/24 14:00 Dextrose 5%-Lactated Ringers IV 125 mls/hr .Q8H LIEN Administration Oxytocin 30 unit in 500 mls @ 1 mls/hr 05/26/24 13:45 05/26/24 17:29 Pitocin IV 16 milliunit/min .Q24H LIEN 16 mls/hr Titration Protocol 1 MILLIUNIT/MIN Lactated Ringer's 1,000 mls @ 999 mls/hr 05/26/24 19:29 05/26/24 19:38 Lactated Ringers IV 999 mls/hr .Q1H1M PRN Administration See label comments PFSH Anesthesia Medical History No pertinent past medical history neghx: htn,dm,thyroid,dvt/pe PCP: None History of seizure Febrile seizures as a child. Years since last seizure. States has never needed medication. Surgical History No pertinent past surgical history Family History Sister Ovarian cancer dx'd at 32 y/o Father Hypertension Mother Heart disease Denies family history of Diabetes Hyperlipidemia Breast cancer Uterine cancer Thyroid disease Stroke Social History Smoking and tobacco/nicotine status: former use of tobacco/nicotine Female Reproductive History : 7 Data Anesthesia 05/26/24 13:10 Short CBC 05/26/24 Range/Units 13:10 WBC 9.78 (3.29-11.43) 10^3/uL Hgb 12.90 (11.27-16.99) g/dL Hct 37.4 (36-47) % MCV 87.4 (85-98) fl Plt Count 189 (157-399) 10^3/cmm Neut % (Auto) 76.1 % Neut # (Auto) 7.44 (1.8-7.7) 10^3/uL Blood Bank 05/26/24 13:10 Blood Type O Positive Rho(D) Type Rh positive Antibody Screen Negative Cardiac Studies: 2 No Data to Display
[2024-05-26] MEDS: ROPivacaine syringe 100 MG/50 ML SYRINGE 10 MG EPIDURAL ×2 (21:04→23:15)
--- NOTE | 2024-05-26 21:06 | P.ANES_ITS ---
Anesthesia Procedures Procedure/Date: 05/26/24 Epidural: Time Out Performed: Yes Consents Signed: Procedure Consent and NPO Consent Consent: requested by attending/covering physician, from patient, risks and benefits reviewed and patient agrees to proceed Lumbar Level: L4-L5 Epidural position: sitting Epidural procedure: sterile prep of area (betadine), 1% lidocaine to numb the area (3 mLs), neg for paresthesia, test dose given, 1.5% xylocaine 1:200k epi (3 mL/2 mL), 0.2% Ropivacaine bolus ml (5 mLs), placed PCEA, no systemic response, sterile dressing applied, L.U.D. no apparent complications and 0.2% Ropiavacaine @ mls/hr (10 mLs/hr) Additional Comments: Attempt x3. CATERINA 8cm,catheter threaded to 13cm. Negative aspiration for CSF before and after test dose and start of infusion. Patient educated on BUSINESS EXCELLENCE LEADER button.
--- NOTE | 2024-05-26 23:40 | PM.DELIVERY ---
Delivery Note: Date of delivery: May 26, 2024 Pre-delivery diagnoses: 39 w 0 d induction of labor Post-delivery diagnoses: 39 w 0 d induction of labor vaginal delivery Procedure: induction of labor vaginal delivery Op report anesthesia: Epidural Delivering Physician: Taye Newman MD Estimated blood loss (mL): 300 Findings: , vigorous infant Cord gases obtained Normal placenta and cord No episiotomy / lacerations EBL: 300 cc No complications Pre-Delivery Course: normal labor course Delivery: vaginal Post-Delivery Status: good History History History 7 Term 5 0 Miscarriages/Ectopic 1 Living Children 5 A&P Assessment and plan (1) Vaginal delivery: Coding Level of Care Code Acute Code for Chg Fwd Diagnoses Vaginal delivery O80 Time Spent (min) 60
[2024-05-27] VITALS (16 sets, daily range): BP systolic 101–134; BP diastolic 51–75; PULSE 82–109; RESP 15–17; TEMP 36.6–37.1; O2SAT 95–98
[2024-05-27] MEDS: lanolin oint 7 gm 1 APPLIC TOPICAL (06:33)
[2024-05-27] MEDS: benzocaine-menthol 78 gm Canister 1 SPRAY TOPICAL (06:33)
[2024-05-27] MEDS: PRENATAL VIT NO.130/IRON/FOLIC 1 EACH TABLET PO (08:44)
[2024-05-27] MEDS: ibuprofen 800 mg tablet PO ×3 (08:44→21:22)
[2024-05-27] MEDS: docusate sodium 100 mg Capsule PO (08:44)
[2024-05-27 12:30] LABS: Hematocrit 34.6 % (36-47); Mean Corpuscular HGB Conc 34.1 g/dL (30-55); Mean Corpuscular Hemoglobin 29.5 pg (27-33); Mean Corpuscular Volume 86.5 fl (85-98); Mean Platelet Volume 9.1 fL (7.4-10.4); Platelet Count 146 10^3/cmm (157-399); White Blood Count 12.15 10^3/uL (3.29-11.43)
--- NOTE | 2024-05-27 14:05 | P.PN_ITS ---
PAID INTERNSHIP Subjective 2 Subjective: Interval history: no c/o no headaches, dizziness, nausea, abdominal pain, bleeding normal lochia eating, voiding, ambulating well Labor: Station: +1 Amniotic Membrane Status: Ruptured Monitor Mode: External Contraction Pattern: Regular Status: Category I Vitals/I&O/Wt Last Vital Signs Temp 98.0 F 05/28/24 11:00 Pulse 89 05/28/24 11:00 Resp 18 05/28/24 11:00 BP 121/81 05/28/24 11:00 Pulse Ox 97 05/28/24 11:00 O2 Del Method Room Air 05/28/24 09:44 Physical Exam 2 Narrative: afebrile, VS normal comfortable, awake, alert Abd: soft, nontender. fundus firm Ext: no edema; nontender Urinary Catheter Management: Simental: Cath Placed During This Visit: yes, but has since been removed by the nurse Reason for Continuing Indwelling Catheter: Decision to DC Catheter Urinary Catheter Date of Insertion: 05/26/24 Urinary Catheter Time of Insertion: 21:40 Date Urinary Catheter Removed: 05/26/24 Time Urinary Catheter Discontinued: 23:30 Data 05/27/24 12:17 A&P Assessment and plan (1) Vaginal delivery: PPD #1 doing well normal course continue care Attestations 2 Medical Necessity Statement*: patient s/p vaginal delivery, plan care Coding Level of Care Code Acute Code for Chg Fwd Diagnoses Vaginal delivery O80 Time Spent (min) 20
[2024-05-28 05:45] VITALS: BP 104/67; PULSE 90; RESP 16; TEMP 36.8; O2SAT 96
--- NOTE | 2024-05-28 08:00 | ANE.PACU2 ---
Inpatient post-anesthesia follow up: Airway intact: Yes Vital signs: Temperature 98.0 F Pulse Rate 89 Respiratory Rate 18 Blood Pressure 121/81 Pulse Oximetry 97 Oxygen Delivery Me thod Room Air Oxygen Flow Rate Fraction of Inspir ed Oxygen Hydration adequate: Yes Nausea and vomiting: No Pain level: 1 Mental status: Baseline Epidural Start/End: Epidural Start Date: 05/26/24 Epidural Start Time: 20:20 Epidural End Date: 05/27/24 Epidural End Time: 01:15
--- NOTE | 2024-05-28 09:10 | P.PN_ITS ---
SOFTWARE APPLICATIONS DESIGNER Subjective 2 Subjective: Interval history: no c/o no bleeding, pain eating, voiding, ambulating well caring for without any problems Labor: Station: +1 Amniotic Membrane Status: Ruptured Monitor Mode: External Contraction Pattern: Regular Status: Category I Vitals/I&O/Wt Last Vital Signs Temp 98.0 F 05/28/24 11:00 Pulse 89 05/28/24 11:00 Resp 18 05/28/24 11:00 BP 121/81 05/28/24 11:00 Pulse Ox 97 05/28/24 11:00 O2 Del Method Room Air 05/28/24 09:44 Physical Exam 2 Narrative: afebrile, VS normal comfortable, awake, alert Abd: soft, nontender. fundus firm Ext: no edema; nontender Urinary Catheter Management: Simental: Cath Placed During This Visit: yes, but has since been removed by the nurse Reason for Continuing Indwelling Catheter: Decision to DC Catheter Urinary Catheter Date of Insertion: 05/26/24 Urinary Catheter Time of Insertion: 21:40 Date Urinary Catheter Removed: 05/26/24 Time Urinary Catheter Discontinued: 23:30 Data 05/27/24 12:17 A&P Assessment and plan (1) Vaginal delivery: PPD #2 doing well discharge to home today instructions and precautions given call/return if fever, chills, headache, blurry vision, nausea, vomiting, abdominal pain; vaginal bleeding or discharge; shortness of breath, chest pain, leg pains or swelling; inability to void, perineal pain or swelling; feelings of depression or mood changes; thoughts of suicide or harming others; inability to care for baby. f/u in 6 weeks or PRN Attestations 2 Medical Necessity Statement*: patient s/p vaginal delivery, plan discharge to home today Coding Level of Care Code Acute Code for Chg Fwd Diagnoses Vaginal delivery O80 Time Spent (min) 20
[2024-05-28] MEDS: PRENATAL VIT NO.130/IRON/FOLIC 1 EACH TABLET PO (09:14)
[2024-05-28] MEDS: docusate sodium 100 mg Capsule PO (09:14)
[2024-05-28] MEDS: ibuprofen 800 mg tablet PO (09:14)
--- NOTE | 2024-05-28 09:15 | PM.OBGYDC ---
Discharge Providers CHIEF DEPUTY COURT CLERK Date of Admission: 05/26/24 13:23 Date of Discharge: 05/28/24 Attending Provider at Admission: Taye Newman MD Attending Provider at Discharge: Taye Newman MD Consults: none Primary CHIEF DEPUTY COURT CLERK: Suman Parekh MD Diagnoses at Discharge Discharge Diagnosis (1) Vaginal delivery: Details from hospital stay: 38 y.o. A1 at 39 w 0 d no complications admitted for elective induction of labor patient received pitocin had normal labor course proceeded to have spontaneous vaginal delivery with no lacerations had uneventful course and was discharged to home on second day Status: Acute Reason for Visit Reason for Visit: INDUCTION OF LABOR Brief History: 38 y.o. A1 at 39 w 0 d no complications admitted for elective induction of labor Hospital Course Hospital Course 38 y.o. A1 at 39 w 0 d no complications admitted for elective induction of labor patient received pitocin had normal labor course proceeded to have spontaneous vaginal delivery with no lacerations had uneventful course and was discharged to home on second day Information Peripartum Data: Infant Delivery Method: Vaginal Laceration description: None Episiotomy description: None complications: none Physical Exam Narrative: afebrile, VS normal comfortable, awake, alert Abd: soft, nontender. fundus firm Ext: no edema; nontender Urinary Catheter Management: Simental: Cath Placed During This Visit: yes, but has since been removed by the nurse Reason for Continuing Indwelling Catheter: Decision to DC Catheter Urinary Catheter Date of Insertion: 05/26/24 Urinary Catheter Time of Insertion: 21:40 Date Urinary Catheter Removed: 05/26/24 Time Urinary Catheter Discontinued: 23:30 History History History 7 Term 5 0 Miscarriages/Ectopic 1 Living Children 5 Discharge Data Studies Completed and Pending Laboratory Results WBC 12.15 10^3/uL (3.29-11.43) H 05/27/24 12:17 RBC 4.00 10^6/uL (3.85-5.65) 05/27/24 12:17 Hgb 11.80 g/dL (11.27-16.99) 05/27/24 12:17 Hct 34.6 % (36-47) L 05/27/24 12:17 MCV 86.5 fl (85-98) 05/27/24 12:17 MCH 29.5 pg (27-33) 05/27/24 12:17 MCHC 34.1 g/dL (30-55) 05/27/24 12:17 RDW 14.0 % (12.1-15.1) 05/27/24 12:17 Plt Count 146 10^3/cmm (157-399) L 05/27/24 12:17 MPV 9.1 fL (7.4-10.4) 05/27/24 12:17 Neut % (Auto) 76.1 % 05/26/24 13:10 Lymph % (Auto) 12.9 % 05/26/24 13:10 Iron % (Auto) 7.7 % 05/26/24 13:10 Eos % (Auto) 0.8 % 05/26/24 13:10 Baso % (Auto) 0.3 % 05/26/24 13:10 Neut # (Auto) 7.44 10^3/uL (1.8-7.7) 05/26/24 13:10 Lymph # (Auto) 1.3 10^3/uL (0.8-4.8) 05/26/24 13:10 Iron # (Auto) 0.8 10^3/uL (0.2-0.9) 05/26/24 13:10 Eos # (Auto) 0.1 10^3/uL (0.0-0.8) 05/26/24 13:10 Baso # (Auto) 0.0 10^3/uL (0.0-0.1) 05/26/24 13:10 Nucleated RBC % (auto) 0 % 05/26/24 13:10 Nucleated RBCs # 0.0 /100WBC 05/26/24 13:10 Blood Type O Positive 05/26/24 13:10 Rho(D) Type Rh positive 05/26/24 13:10 Antibody Screen Negative 05/26/24 13:10 Procedures Performed induction of labor vaginal delivery Vitals Last Vital Signs Temp 98.0 F 05/28/24 11:00 Pulse 89 05/28/24 11:00 Resp 18 05/28/24 11:00 BP 121/81 05/28/24 11:00 Pulse Ox 97 05/28/24 11:00 O2 Del Method Room Air 05/28/24 09:44 Results Labs OB ([facility]): Obstetrics US/Biophysical Profile 05/13/24 Blood Type O Positive 05/26/24 Antibody Screen Negative 05/26/24 Hct 34.6 % (36-47) L 05/27/24 Hgb 11.80 g/dL (11.27-16.99) 05/27/24 Rho(D) Type Rh positive 05/26/24 Plt Count 146 10^3/cmm (157-399) L 05/27/24 Hep Bs Antigen Non-reactive (Nonreactive) 11/10/23 Hepatitis C Antibody Non-reactive (Nonreactive) 11/10/23 Rubella IgG Antibody > 500.0 IU/mL (0.0-10.0) H 11/10/23 RPR Nonreactive (Nonreactive) 11/10/23 HIV 1&2 Ab & HIV 1 Ag Non-reactive (Non-Reactiv) 11/10/23 TSH 1.26 uIU/mL (0.27-4.20) 10/29/22 Free T4 1.11 ng/dL (0.82-1.77) 10/29/22 C.trachomatis RNA (TMA) Not detected (NOT DETECTED) 11/10/23 N.gonorrhoeae RNA (TMA) Not detected (NOT DETECTED) 11/10/23 T. vaginalis Amp RNA Not detected (NOT DETECTED) 11/10/23 Chlamydia/GC Comment See note 11/10/23 Cystic Fibrosis Screen Negative 12/29/23 Glucose 1 Hr 50 gm 96 mg/dL (85-140) 02/14/24 HCG, Qual Positive (Negative) H 10/11/23 Urine Opiates Screen Negative ng/mL (Negative) 01/20/24 Ur Barbiturates Screen Negative ng/mL (Negative) 01/20/24 Ur Phencyclidine Scrn Negative ng/mL (Negative) 01/20/24 Ur Amphetamines Screen Negative ng/mL (Negative) 01/20/24 U Benzodiazepines Scrn Negative ng/mL (Negative) 01/20/24 Urine Cocaine Screen Negative ng/mL (Negative) 01/20/24 U Marijuana (THC) Screen Negative ng/mL (Negative) 01/20/24 Micro Urine Specimen 02/14/24 Pap Smear Interpret See note A 11/10/23 Discharge Plan Discharge Patient Disposition: Home Condition: Stable Prescriptions: Continued PNV [id number] oil 400-32.5 mcg-mg tablet,chewable PO Discharge Orders: Discharge Order (Routine); Ordered 05/28/24 Ordered By: Taye Newman Referrals: Taye Newman MD [Physician] - 07/09/24 2:15 pm Discharge Diet: Usual diet Discharge Activity: Increase activity as tolerated Patient Instructions: Depression (DC), Perineal Care (DC), Preeclampsia and Eclampsia After Delivery (GEN), Breast Care for the Mother (DC), OB Discharge Report, OB Food/Drug Interaction Guide, OB Care at Home, Opioid Safety, Abnormal Bleeding Discharge Attestations CHIEF DEPUTY COURT CLERK Time Spent in Discharge Care*: less than 30 min Coding Level of Care Code Acute Code for Chg Fwd Diagnoses Vaginal delivery O80 Time Spent (min) 20
[2024-05-28 09:44] VITALS: BP 121/81; PULSE 89; RESP 18; TEMP 36.7; O2SAT 97
[2024-05-28 11:00] VITALS: BP 121/81; PULSE 89; RESP 18; TEMP 36.7; O2SAT 97
== END 2024-05-28 11:02 | disposition home or self-care (01) | DRG 807 ==
LOC: OPOB 13:24 → OBGYN 13:24
PROVIDERS: Absent Provider Obstetrics & Gynecology; Admitting Provider Obstetrics & Gynecology; Visit Provider Obstetrics & Gynecology
DX: O80 Encounter for full-term uncomplicated delivery (principal); Z37.0 Single live birth; Z3A.39 39 weeks gestation of pregnancy; Z87.891 Personal history of nicotine dependence
CPT/HCPCS: 36415; 51702; 59025; 59409; 85025; 85027; 86850; 86900; 99211; J2590; J2795; J7120; J7121